=== PATIENT | female | born 2000 | race Caucasian/White ===

== ENCOUNTER 2018-07-19 19:08 | Emergency (ER) | payer OTHER ==
[2018-07-19 19:16] VITALS: BP 123/76
--- NOTE | 2018-07-19 19:21 | ER Report ---
History and Physical Time Seen By MD: 19:22 HPI/ROS CHIEF COMPLAINT: Laceration HISTORY OF PRESENT ILLNESS: This is a 17-year-old female presents to the emergency department for laceration. Patient states she was at work, taking the garbage out when the garbage hit the lateral aspect of her left lower leg causing a laceration. She is not sure what caused the laceration. Bleeding is controlled. CMS intact distal to the injury. No fevers or chills. No nausea or vomiting. REVIEW OF SYSTEMS: Respiratory: No cough, no dyspnea. Cardiovascular: No chest pain, no palpitations. Gastrointestinal: No vomiting, no abdominal pain. Musculoskeletal: No back pain. Integument rate: As above. Allergies: Coded Allergies: No Known Drug Allergies (Unverified , 07/19/18) Home Meds No Active Prescriptions or Reported Meds Past Medical/Surgical History The patient has a past medical surgical history of wisdom tooth extraction and wearing glasses. Reviewed Nurses Notes: Yes Constitutional Vital Sign - Last 24 Hours 07/19/18 19:16 Temp 97.3 Pulse 92 Resp 16 B/P (MAP) 123/76 Pulse Ox 96 O2 Delivery Room Air Physical Exam General Appearance: The patient is alert, has no immediate need for airway protection and no current signs of toxicity. Eyes: Pupils equal and round no injection. Respiratory: Chest is non tender, lungs are clear to auscultation. Cardiac: regular rate and rhythm. Gastrointestinal: Abdomen is soft and non tender, no masses, bowel sounds normal. Musculoskeletal: Neck: Neck is supple and non tender. Extremities have full range of motion and are non tender. Skin: 2.5 cm laceration to the left lateral lower leg, bleeding controlled, CMS intact distal to the injury. DIFFERENTIAL DIAGNOSIS: After history and physical exam differential diagnosis was considered for laceration. Medical Decision Making EKG/Imaging Imaging TIBIA FIBULA LEFT Indication: Left leg laceration. Comparison: None available. Findings: 2 views of the left tib-fib. Soft tissue injury lateral to the distal fibula. No evidence of acute fracture, dislocation, or radiopaque foreign body. Normal mineralization, joint spaces, and alignment. Impression: Soft tissue injury lateral to the distal fibula. Evidence of acute fracture or radiopaque foreign body. Report Dictated By: Josafat Minor MD at 07/19/2018 8:02 PM Report E-Signed By: Josafat Minor MD at 07/19/2018 8:04 PM WSN:[facility] ED Course/Re-evaluation ED Course The patient was admitted to room. A history physical were obtained. Differential diagnoses were considered. An x-ray of the left extremity was negative for a foreign body. The wound was thoroughly irrigated and cleansed with normal saline and Shur-Clens. The 2.5 cm laceration was prepared as noted below, the patient tolerated very well. The patient's tetanus was updated. The wound was covered with a small layer of bacitracin and an occlusive dressing. The patient had no other questions or concerns and was discharged home. She was instructed to follow-up within 10 days for reevaluation and suture removal. Instructed to monitor or for signs of infection. Procedure: Laceration repair. Verbal consent was obtained from the patient. The 2.5 cm laceration on the lateral left lower leg was anesthetized in the usual fashion. The wound was scrubbed, draped and explored to its base with a gloved finger. There were no deep structures involved. No tendon injury was identified. The wound was repaired with 2, 5-0 Vicryl internal sutures, using simple interrupted technique, 7, 5-0 Ethilon sutures using simple interrupted technique. The wound repair was complex. The procedure was performed by myself. Decision to Disposition Date: Jul 19, 2018 Decision to Disposition Time: 20:48 Depart Departure Latest Vital Signs Vital Signs Date Time Temp Pulse Resp B/P (MAP) Pulse Ox O2 Delivery O2 Flow Rate FiO2 07/19/18 19:16 97.3 92 16 123/76 96 Room Air Impression: Primary Impression: Laceration of left lower leg Condition: Improved Disposition: HOME OR SELF-CARE New Scripts No Active Prescriptions or Reported Meds Patient Instructions: Acute Wound Care (ED), Laceration (ED) Additional Instructions: Keep wound dry for 24-48 hours. Follow up with your primary care provider, [facility] or the emergency department in the next 10 days to have sutures removed. Monitor for signs of infection; redness, swelling, heat, discharge, increasing pain or red streaking. Take Tylenol or Ibuprofen as needed for pain. Apply a thin layer of antibiotic ointment to the wound, 3-4 times a day, keep it covered. Return to the ER with any concerns. You may change dressing as needed. Problem Qualifiers Primary Impression: Laceration of left lower leg Encounter type: initial encounter Qualified Codes: S81.812A - Laceration without foreign body, left lower leg, initial encounter JOSAFAT GONZALEZ-SHUBHAM Jul 19, 2018 19:21
[2018-07-19] MEDS ORDERED: DIPHTH/TETANUS/ACEL. PERTUSSIS IM ONLY ONE (19:25)
--- NOTE | 2018-07-19 20:07 | RADIOLOGY IMAGING REPORT ---
FACILITY: [facility] PATIENT NAME: Jesi Diamond : 2000 MR: [id number] V: [id number] EXAM DATE: ORDERING PHYSICIAN: JOSAFAT GONZALEZ TECHNOLOGIST: Location: [facility] - [place] Patient: Jesi Diamond : 2000 Visit/Account:[id number] Date of Sevice: 07/19/2018 TIBIA FIBULA LEFT Indication: Left leg laceration. Comparison: None available. Findings: 2 views of the left tib-fib. Soft tissue injury lateral to the distal fibula. No evidence of acute fracture, dislocation, or radi opaque foreign body. Normal mineralization, joint spaces, and alignment. Impression: Soft tissue injury lateral to the distal fibula. Evidence of acute fracture or radiopaqu e foreign body. Report Dictated By: Josafat Minor MD at 07/19/2018 8:02 PM Report E-Signed By: Josafat Minor MD at 07/19/2018 8:04 PM WSN:[id number]
== END 2018-07-19 21:00 | disposition home or self-care (01) ==
LOC: ER 19:40
DX: S81.812A Laceration without foreign body, left lower leg, initial encounter (principal)
CPT/HCPCS: 90471; 90715; 99283

== ENCOUNTER → 2018-12-23 | Outpatient (CLI) | payer OTHER ==
[2018-12-23 09:45] LABS: PLATELET COUNT, AUTOMATED 307 K/uL (150-450)
== END ==
LOC: LAB 09:19
PROVIDERS: ATTEND Nurse Practitioner Family
DX: M13.0 Polyarthritis, unspecified (principal)
CPT/HCPCS: 36415; 82040; 82247; 82310; 82374; 82435; 82565; 82947; 84075; 84132; 84155; 84295; 84443; 84450; 84460; 84520; 85025; 85651; 86038; 86140; 86200; 86430